=== PATIENT | male | born 1940 | race Caucasian/White ===

== ENCOUNTER 2017-03-08 09:26 | Inpatient (IN) | payer OTHER ==
[~2017-03-08] VITALS: Ht 167.6 cm; Wt 76.2 kg
[2017-03-08] MEDS ORDERED: OMEP20TA62 PO (09:39)
[2017-03-08] MEDS ORDERED: ONDANSETRON 2MG/ML, 2ML IVPush ONE (10:00)
[2017-03-08] MEDS ORDERED: SODIUM CHLORIDE FLUSH 10ML SYR IVF ONE (10:00)
[2017-03-08] MEDS ORDERED: MORPHINE SULFATE 4 MG/ML, 1ML ONE ×2 (10:04→10:52)
[2017-03-08] MEDS ORDERED: ONDANSETRON 2MG/ML, 2ML ONE (10:04)
[2017-03-08] MEDS: MORPHINE SULFATE 4 MG/ML, 1ML IVPush PRN ×2 (10:08→10:54)
[2017-03-08 10:26] LABS: ASPARTATE AMINO TRANSFERASE 24 U/L (15-37); BLOOD UREA NITROGEN 17 mg/dL (7-18)
[2017-03-08 11:46] LABS: IS PT STATUS REG ER OR PRE ER? YES
[2017-03-08] MEDS ORDERED: ENOXAPARIN 40 MG/0.4 ML SQ SCH (12:30)
[2017-03-08] MEDS ORDERED: MAALOX/HYOSCYAMINE/LIDOCAINE 45 ML BOTTLE PO ONE (12:30)
[2017-03-08] MEDS ORDERED: KETOROLAC 30 MG/1 ML IVPush ONE ×2 (12:30→15:03)
[2017-03-08] MEDS ORDERED: KETOROLAC 30 MG/1 ML ONE (12:57)
[2017-03-08] MEDS ORDERED: MAALOX/HYOSCYAMINE/LIDOCAINE 45 ML BOTTLE ONE (12:58)
[2017-03-08] MEDS ORDERED: ENOXAPARIN 40 MG/0.4 ML ONE (12:58)
[2017-03-08 14:52] VITALS: BP 170/92
[2017-03-08] MEDS ORDERED: NITROGLYCERIN 0.4 MG/SPRAY SL PRN (15:00)
[2017-03-08] MEDS: NITROGLYCERIN 0.4 MG BOTTLE (25 TABS) SL PRN ×3 (15:24→17:45)
[2017-03-08] MEDS ORDERED: LISINOPRIL 10 MG TABLET PO ONE (15:30)
[2017-03-08] MEDS: ONDANSETRON 2MG/ML, 2ML IVPush PRN ×2 (15:30→21:18)
[2017-03-08 15:35] VITALS: BP 144/82
[2017-03-08] MEDS: morphine SULFATE 10 MG/ML, 1ML IVPush PRN ×2 (16:03→18:05)
[2017-03-08 16:28] LABS: IS PT STATUS REG ER OR PRE ER? NO
[2017-03-08] MEDS ORDERED: HEPARIN 25,000 UNITS/500ML PMX 500 ML IV PRN ×2 (17:00→18:00)
[2017-03-08 17:14] VITALS: BP 163/92
[2017-03-08] MEDS ORDERED: HEPARIN 5,000 UNITS/ML, 1ML ONE (17:14)
[2017-03-08 17:55] VITALS: BP 161/81
[2017-03-08] MEDS ORDERED: NITROGLYCERIN OINT 2%, 1GM TP ONE (17:56)
[2017-03-08] MEDS ORDERED: NITROGLYCERIN OINT 2%, 1GM TP SCH (18:00)
[2017-03-08] MEDS ORDERED: HEPARIN 5,000 UNITS/ML, 1ML IV PRN (18:00)
[2017-03-08] MEDS: METOPROLOL TARTRATE 25 MG TABLET PO SCH (18:00)
[2017-03-08] MEDS: NITROGLYCERIN OINT 2%, 1GM TP SCH (18:05)
[2017-03-08 18:15] VITALS: BP 116/75
[2017-03-08 19:52] VITALS: BP 137/87
[2017-03-08] MEDS: PROMETHAZINE 25 MG/ML, 1ML IM ONE ×2 (20:30→22:33)
[2017-03-08] MEDS: SODIUM CHLORIDE FLUSH 3ML SYRINGE IVF SCH (21:00)
[2017-03-08] MEDS: ATORVASTATIN 80 MG TABLET PO SCH (21:00)
[2017-03-08 21:21] LABS: IS PT STATUS REG ER OR PRE ER? NO
[2017-03-08] MEDS ORDERED: ENOXAPARIN 80 MG/0.8 ML SQ SCH (22:00)
[2017-03-09] VITALS (9 sets, daily range): BP systolic 108–155; BP diastolic 49–81
[2017-03-09] MEDS: NITROGLYCERIN OINT 2%, 1GM TP SCH ×3 (00:06→12:06)
[2017-03-09] MEDS ORDERED: ACETAMINOPHEN 325 MG TABLET ONE (04:26)
[2017-03-09] MEDS ORDERED: ACETAMINOPHEN 325 MG TABLET PO PRN (04:30)
[2017-03-09] MEDS: METOPROLOL TARTRATE 25 MG TABLET PO SCH ×2 (05:45→18:00)
[2017-03-09] MEDS ORDERED: ASPIRIN 325 MG TABLET EC PO SCH (06:00)
[2017-03-09 06:06] LABS: IS PT STATUS REG ER OR PRE ER? NO
[2017-03-09] MEDS: NITROGLYCERIN 0.4 MG BOTTLE (25 TABS) SL PRN ×2 (08:54→09:03)
[2017-03-09] MEDS: SODIUM CHLORIDE FLUSH 3ML SYRINGE IVF SCH ×2 (09:03→21:27)
[2017-03-09] MEDS: morphine SULFATE 10 MG/ML, 1ML IVPush PRN (09:12)
[2017-03-09] MEDS ORDERED: FENTANYL PF 100 MCG/2ML ONE (09:30)
[2017-03-09] MEDS ORDERED: MIDAZOLAM 1 MG/ML, 5ML ONE (09:30)
[2017-03-09] MEDS ORDERED: BIVALIRUDIN 250 MG ONE ×2 (09:31→10:55)
[2017-03-09] MEDS ORDERED: LIDOCAINE 2%, 20ML ONE (09:31)
[2017-03-09] MEDS ORDERED: TICAGRELOR 90 MG TABLET ONE (09:31)
[2017-03-09] MEDS ORDERED: VERAPAMIL 2.5 MG/ML, 2ML ONE (09:31)
[2017-03-09] MEDS ORDERED: NITROGLYCERIN 5 MG/ML, 10ML ONE (09:31)
[2017-03-09] MEDS ORDERED: HEPARIN 1,000 UNITS/ML, 10ML ONE (09:31)
[2017-03-09] MEDS ORDERED: ONDANSETRON 2MG/ML, 2ML ONE (10:06)
[2017-03-09] MEDS: BIVALIRUDIN 250 MG in DEXTROSE 5% 50 ML IV SCH ×2 (11:00→12:56)
[2017-03-09] MEDS ORDERED: [UNRECOGNIZED DRUG - REMARK] MC SCH (11:30)
[2017-03-09] MEDS: ASPIRIN 81 MG TABLET EC PO SCH (11:30)
[2017-03-09] MEDS: TICAGRELOR 90 MG TABLET PO SCH ×2 (11:30→21:26)
[2017-03-09] MEDS: PANTOPROZOLE 40MG TABLET PO SCH (12:00)
[2017-03-09] MEDS: ATORVASTATIN 80 MG TABLET PO SCH (21:26)
[2017-03-10 01:17] VITALS: BP 116/68
[2017-03-10 05:37] LABS: BLOOD UREA NITROGEN 19 mg/dL (7-18)
[2017-03-10] MEDS: METOPROLOL TARTRATE 25 MG TABLET PO SCH (06:30)
[2017-03-10 07:06] VITALS: BP 124/79
[2017-03-10] MEDS ORDERED: POTASSIUM CHLORIDE 20 MEQ TAB.ER.PRT PO ONE (08:00)
[2017-03-10] MEDS ORDERED: POTASSIUM CHLORIDE 20 MEQ TAB.ER.PRT ONE (08:08)
[2017-03-10] MEDS: TICAGRELOR 90 MG TABLET PO SCH (08:21)
[2017-03-10] MEDS: PANTOPROZOLE 40MG TABLET PO SCH (08:21)
[2017-03-10] MEDS: ASPIRIN 81 MG TABLET EC PO SCH (08:21)
[2017-03-10] MEDS: SODIUM CHLORIDE FLUSH 3ML SYRINGE IVF SCH (08:21)
[2017-03-10] MEDS ORDERED: ASPI-621 PO (10:10)
[2017-03-10] MEDS ORDERED: ATOR80TA75 PO (10:10)
[2017-03-10] MEDS ORDERED: METO25TA35 PO (10:10)
[2017-03-10] MEDS ORDERED: TICA90TA PO (10:10)
== END 2017-03-10 11:40 | disposition home or self-care (01) | DRG 246 ==
LOC: ED 11:42 → EDIP 12:07 → 5SO 14:59 → DCLOUNGE 03-10 11:02
PROVIDERS: ADMIT Internal Medicine; ATTEND Internal Medicine
PROC: 027034Z Dilation of Coronary Artery, One Artery with Drug-eluting Intraluminal Device, Percutaneous Approach (ICD-10-PCS; principal; 2017-03-09)
PROC: 4A023N7 Measurement of Cardiac Sampling and Pressure, Left Heart, Percutaneous Approach (ICD-10-PCS; 2017-03-09)
PROC: B2111ZZ Fluoroscopy of Multiple Coronary Arteries using Low Osmolar Contrast (ICD-10-PCS; 2017-03-09)
PROC: B2151ZZ Fluoroscopy of Left Heart using Low Osmolar Contrast (ICD-10-PCS; 2017-03-09)
DX: I21.4 Non-ST elevation (NSTEMI) myocardial infarction (principal); I50.31 Acute diastolic (congestive) heart failure; J98.11 Atelectasis; E78.5 Hyperlipidemia, unspecified; I11.0 Hypertensive heart disease with heart failure; K21.9 Gastro-esophageal reflux disease without esophagitis; E87.6 Hypokalemia; R00.1 Bradycardia, unspecified
CPT/HCPCS: 36415; 71010; 80048; 80053; 80061; 82040; 83036; 84484; 85025; 85520; 93005; 93306; 93458; 96372; 96374; 96375; C1760; C1894; C9600; J0583; J1644; J1650; J1885; J2250; J2405; J2550; J3010; J3490; C1725; C1769; C1874; C1887; J2270; Q9967